=== PATIENT | male | born 1985 | race African-American/Black ===

== ENCOUNTER 2019-10-26 09:41 | Emergency (ER) | payer OTHER ==
[~2019-10-26] VITALS: Ht 182.5 cm; Wt 81.6 kg
[2019-10-26 09:41] VITALS: BP 155/112
--- NOTE | 2019-10-26 09:58 | ED Fever ---
History of Present Illness General Chief Complaint: General Problems/Pain Stated Complaint: FEVER / COUGH / SOA Source: patient Exam Limitations: no limitations History of Present Illness Date Seen by Provider: Oct 26, 2019 Time Seen by Provider: 09:44 Initial Comments Patient arrives the ER by private conveyance from work with chief complaint that yesterday he was having some malaise and last night he had some subjective fevers and chills, body aches. He's had a cough for the past 2 days is nonproductive. He states that he feels weak. 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 He says he does not feel safe climbing up on a Towers at his work told him he had to come in and get tested. He has no known medical history and does not follow with a doctor. He does smoke about a pack cigarettes per week and daily smokes marijuana but denies any recreational drug use and only rarely drinks alcohol. No known sick contacts. No nausea vomiting diarrhea. Allergies and Home Medications Home Medications Benzonatate 100 Mg Capsule, 100 MG PO Q6H PRN for COUGH Prescribed by: ADRIANA PARR on 10/26/19 1002 Patient Home Medication List Home Medication List Reviewed: Yes Review of Systems Review of Systems Constitutional: chills, fever, malaise, weakness EENTM: No ear discharge, No ear pain Respiratory: cough; No phlegm; short of breath; No wheezing Cardiovascular: No chest pain, No palpitations Gastrointestinal: No abdominal pain, No nausea Genitourinary: No discharge, No dysuria Musculoskeletal: No back pain, No joint pain Skin: No pruritus, No rash All Other Systems Reviewed Negative Unless Noted: Yes Past Cqcexkl-Wecbrz-Vfumhs Hx Patient Social History Alcohol Use: Rarely Uses Recreational Drug Use: Yes Drug of Choice: cannabis daily Smoking Status: Current Everyday Smoker Type Used: Cigarettes (one pack per week) Physical Exam Vital Signs - First Documented 10/26/19 09:41 Temp 36.4 Pulse 65 Resp 18 B/P (MAP) 155/112 (126) Pulse Ox 100 O2 Delivery Room Air Capillary Refill : Height: '" Weight: lbs. oz. kg; BMI Method: General Appearance: WD/WN, no apparent distress Eyes: Bilateral Eye Normal Inspection, Bilateral Eye PERRL, Bilateral Eye EOMI HEENT: PERRL/EOMI, normal ENT inspection, TMs normal, pharynx normal (oral mucosa is moist) Neck: full range of motion, normal inspection Respiratory: lungs clear, normal breath sounds, no respiratory distress (100% oxygen saturation on room air.), no accessory muscle use Cardiovascular: normal peripheral pulses, regular rate, rhythm Extremities: non-tender, normal inspection, no pedal edema, normal capillary refill Neurologic/Psychiatric: alert, normal mood/affect, oriented x 3 Skin: normal color, warm/dry Progress/Results/Core Measures Suspected Sepsis SIRS Temperature: Pulse: Respiratory Rate: Blood Pressure / Mean: Results/Orders Lab Results Laboratory Tests Test 10/26/19 10:00 Range/Units My Orders Orders - ADRIANA PARR Chest 1 View, Ap/Pa Only (10/26/19 09:51) Coronavirus Sars-Cov-2 So 2019 (10/26/19 09:51) Vital Signs/I&O 10/26/19 09:41 Temp 36.4 Pulse 65 Resp 18 B/P (MAP) 155/112 (126) Pulse Ox 100 O2 Delivery Room Air Capillary Refill : Progress Note : Time: 09:57 Progress Note I have some suspicion that patient has a viral upper respiratory tract infection and COVID-19 as included in this. Plan to swab him for COVID-19 and prescribe him a course of conservative management for symptoms. Chest x-ray. Laboratory examination is not indicated nor will be helpful. He has aseptic vital signs and nonlabored breathing. Diagnostic Imaging Diagonstic Imaging: Xray Plain Films/CT/US/NM/MRI: chest (1v) Comments NAME: [facility] REC#: [id number] PT STATUS: REG ER : 1985 PHYSICIAN: ADRIANA PARR MD ADMIT DATE: 10/26/19/ER Draft Date of Exam:10/26/19 CHEST 1 VIEW, AP/PA ONLY INDICATION: Shortness of breath at night. TECHNIQUE: Single view chest 10:14 AM. CORRELATION STUDY: None FINDINGS: The heart size, mediastinal configuration and pulmonary vascularity are within normal limits. The lungs are clear with no consolidating infiltrate. There is no significant effusion or pneumothorax. IMPRESSION: 1. Negative appearing portable chest. Dictated on workstation # [id number] Dict: 10/26/19 1018 Trans: 10/26/19 1019 DO [id number] Interpreted by: THELMA SINGLETON DO Electronically signed by: Reviewed: Reviewed by Me Departure Impression Primary Impression: Viral upper respiratory tract infection with cough Additional Impression: COVID-19 PUI Disposition: 01 HOME, SELF-CARE Condition: Stable Departure-Patient Inst. Decision time for Depature: 10:22 Patient Instructions: Viral Upper Respiratory Infection, Adult (DC) Add. Discharge Instructions: I suspect your illness is related to a virus. [id number] symptomatic treatment medicines are recommended such as Mucinex. Tessalon Perles 1 capsule every 6 hours as needed for cough. Tylenol 1000 mg every 8 hours as necessary for fever or bodyaches. Ibuprofen 800 mg every 8 hours as necessary for fever or bodyaches. Get plenty of sleep and drink lots of fluids as dehydration can also mimic these symptoms or make them worse. The COVID-19 swab will result out over the next several days and if it is positive we will call you. You may always check back with medical records during business hours for your result. You are on self quarantine for 10 days from the start of your symptoms and/or 72 hours after your symptoms resolve; whichever is longer. If the COVID-19 swab is negative then you are good to return to work 72 hours after your symptoms resolve. All discharge instructions reviewed with patient and/or family. Voiced understanding. Scripts Benzonatate (TESSALON PERLES) 100 Mg Capsule 100 MG PO Q6H PRN for COUGH, #30 CAP 0 Refills Prov: ADRIANA PARR 10/26/19 Work/School Note: Work Release Form Date Seen in the Emergency Department: Oct 26, 2019 Return to Work: Nov 04, 2019 Restrictions: No Restrictions Other Restrictions Listed Below: If COVID-19 negative then may return 72 hours after symptoms resolve. Restrictions: If COVID-19 pos;10 days quarantine and return to work when 72h symptom-free ADRIANA PARR Oct 26, 2019 09:58
--- NOTE | 2019-10-26 10:00 | NUR ---
COVID-19 swab done at this time.
[2019-10-26] MEDS ORDERED: BENZ100C18 PO (10:02)
--- NOTE | 2019-10-26 10:19 | Diagnostic Imaging Report ---
INDICATION: Shortness of breath at night. TECHNIQUE: Single view chest 10:14 AM. CORRELATION STUDY: None FINDINGS: The heart size, mediastinal configuration and pulmonary vascularity are within normal limits. The lungs are clear with no consolidating infiltrate. There is no significant effusion or pneumothorax. IMPRESSION: 1. Negative appearing portable chest. Dictated by: Dictated on workstation # [id number]
== END 2019-10-26 10:39 | disposition home or self-care (01) ==
LOC: ER 09:42
DX: J06.9 Acute upper respiratory infection, unspecified (principal); F17.210 Nicotine dependence, cigarettes, uncomplicated; Z20.828 Contact with and (suspected) exposure to other viral communicable diseases
CPT/HCPCS: 71045; 99282; U0002; 87635